=== PATIENT | male | born 1980 | race Caucasian/White ===

== ENCOUNTER 2019-12-31 15:52 | Inpatient (IN) | payer OTHER, BC ==
[2019-12-31] MEDS ORDERED: SODIUM CHLORIDE 0.9% 500 ML 500 ML IV STA (16:12)
[2019-12-31] MEDS ORDERED: SODIUM CHLORIDE 0.9% 1,000 ML IV STA ×2 (16:12)
--- NOTE | 2019-12-31 16:24 | ED ---
General Adult HPI - General Stated complaint: Tachycardia Time Seen by Provider: 12/31/19 16:05 Source: patient, EMS, RN notes reviewed Mode of arrival: EMS Limitations: no limitations - History of Present Illness Initial comments: Patient is a pleasant 39-year-old male presenting to the emergency department with concerns for heat exhaustion. Patient states he was working outside today doing some somewhat heavy exertion with hot temperatures. Patient states he was drinking fluid however feels he is over heated. Patient feels very fatigued and somewhat achy throughout. No history of similar symptoms previously. No recent illness. No vomiting. Patient does feel somewhat thirsty. - Related Data Previous Rx's Medication Instructions Recorded Ondansetron Odt [Zofran ODT] 4 mg PO Q8HR PRN #5 tab 12/26/14 Allergies Allergy/AdvReac Type Severity Reaction Status Date / Time bee venom protein (honey bee) Allergy Rash/Hives Verified 12/31/19 16:54 Review of Systems ROS Statement: Those systems with pertinent positive or pertinent negative responses have been documented in the HPI. ROS Other: All systems not noted in ROS Statement are negative. Constitutional: Reports: as per HPI Eyes: Denies: eye pain ENT: Denies: ear pain Respiratory: Denies: cough Cardiovascular: Denies: chest pain Endocrine: Reports: fatigue Gastrointestinal: Denies: abdominal pain, vomiting Genitourinary: Denies: urgency Musculoskeletal: Denies: back pain Skin: Denies: rash Neurological: Denies: weakness Past Medical History Past Medical History: No Reported History History of Any Multi-Drug Resistant Organisms: None Reported Past Surgical History: Tonsillectomy Past Psychological History: No Psychological Hx Reported Smoking Status: Never smoker Past Alcohol Use History: Rare Past Drug Use History: None Reported General Exam Limitations: no limitations General appearance: alert, in no apparent distress Head exam: Present: normocephalic Eye exam: Present: normal appearance ENT exam: Present: normal oropharynx Neck exam: Present: normal inspection. Absent: tenderness Respiratory exam: Present: normal lung sounds bilaterally Cardiovascular Exam: Present: tachycardia GI/Abdominal exam: Present: soft. Absent: tenderness Extremities exam: Present: normal inspection Neurological exam: Present: alert, oriented X3. Absent: motor sensory deficit Psychiatric exam: Present: normal affect, normal mood Skin exam: Present: normal color Course Vital Signs 12/31/19 12/31/19 12/31/19 15:52 16:00 16:15 Temperature 97.4 F L Pulse Rate 149 H 138 H 121 H Respiratory 20 20 20 Rate Blood Pressure 109/79 102/67 100/66 O2 Sat by Pulse 100 99 99 Oximetry 12/31/19 12/31/19 16:30 16:40 Temperature Pulse Rate 122 H 122 H Respiratory 18 18 Rate Blood Pressure 111/66 115/76 O2 Sat by Pulse 99 99 Oximetry - Reevaluation(s) Reevaluation #1: 12/31/19 16:[address] Condon for final disposition EKG Findings - EKG Comments: EKG Findings:: Sinus tachycardia 143. MN 138. QRS 80. QT 274. QTC 422. Right axis. Normal QRS. No acute ST change. Medical Decision Making - Medical Decision Making Patient reevaluated and resting comfortably in bed. Patient family updated on results and plan. [employer] paged covering for hospital call. - Lab Data Result diagrams: 12/31/19 16:01 12/31/19 16:01 Lab Results 12/31/19 12/31/19 Range/Units 16:01 16:01 WBC 14.9 H (3.8-10.6) k/uL RBC 5.35 (4.30-5.90) m/uL Hgb 16.1 (13.0-17.5) gm/dL Hct 47.3 (39.0-53.0) % MCV 88.4 (80.0-100.0) fL MCH 30.1 (25.0-35.0) pg MCHC 34.1 (31.0-37.0) g/dL RDW 12.4 (11.5-15.5) % Plt Count 377 (150-450) k/uL Neutrophils % 68 % Lymphocytes % 24 % Monocytes % 5 % Eosinophils % 1 % Basophils % 1 % Neutrophils # 10.2 H (1.3-7.7) k/uL Lymphocytes # 3.6 (1.0-4.8) k/uL Monocytes # 0.7 (0-1.0) k/uL Eosinophils # 0.1 (0-0.7) k/uL Basophils # 0.1 (0-0.2) k/uL Sodium 141 (137-145) mmol/L Potassium 4.1 (3.5-5.1) mmol/L Chloride 109 H (98-107) mmol/L Carbon Dioxide 15 L (22-30) mmol/L Anion Gap 17 mmol/L BUN 26 H (9-20) mg/dL Creatinine 2.76 H (0.66-1.25) mg/dL Est GFR (CKD-EPI)AfAm 32 (>60 ml/min/1.73 sqM) Est GFR (CKD-EPI)NonAf 28 (>60 ml/min/1.73 sqM) Glucose 132 H (74-99) mg/dL Calcium 10.6 H (8.4-10.2) mg/dL Magnesium 1.5 L (1.6-2.3) mg/dL Total Bilirubin 1.0 (0.2-1.3) mg/dL AST 269 H (17-59) U/L ALT 78 H (4-49) U/L Alkaline Phosphatase 82 (38-126) U/L Total Protein 8.7 H (6.3-8.2) g/dL Albumin 5.5 H (3.5-5.0) g/dL Disposition Clinical Impression: Dehydration Disposition: ADMITTED IP TO THIS HOSP Is patient prescribed a controlled substance at d/c from ED?: No Referrals: None,Stated [Primary Care Provider] - 1-2 days Decision Time: 17:14
[2019-12-31 16:29] LABS: Basophils # (A) 0.1 k/uL (0-0.2); Basophils % (A) 1 %; Eosinophils # (A) 0.1 k/uL (0-0.7); Eosinophils % (A) 1 %; HCT 47.3 % (39.0-53.0); HGB 16.1 gm/dL (13.0-17.5); Lymphocytes # (A) 3.6 k/uL (1.0-4.8); Lymphocytes % (A) 24 %; MCH 30.1 pg (25.0-35.0); MCHC 34.1 g/dL (31.0-37.0); MCV 88.4 fL (80.0-100.0); Mean Platelet Volume 7.8; Monocytes # (A) 0.7 k/uL (0-1.0); Monocytes % (A) 5 %; Neutrophils # (A) 10.2 k/uL (1.3-7.7); Neutrophils % (A) 68 %; Platelet Count 377 k/uL (150-450); RBC 5.35 m/uL (4.30-5.90); RDW 12.4 % (11.5-15.5); WBC 14.9 k/uL (3.8-10.6)
[2019-12-31 16:40] LABS: Albumin 5.5 g/dL (3.5-5.0); Calcium 10.6 mg/dL (8.4-10.2); Magnesium 1.5 mg/dL (1.6-2.3); Potassium 4.1 mmol/L (3.5-5.1); Total Protein 8.7 g/dL (6.3-8.2)
[2019-12-31] MEDS ORDERED: MAGNESIUM OXIDE 400 MG TAB PO STA (17:13)
[2019-12-31] MEDS ORDERED: NALOXONE 0.4 MG/ML 1 ML VIAL IV PRN (17:14)
[2019-12-31] MEDS ORDERED: ACETAMINOPHEN TAB 500 MG TAB PO PRN (17:57)
--- NOTE | 2019-12-31 18:06 | P.HPIM ---
History of Present Illness H&P Date: 12/31/19 Chief Complaint: Dehydration 39-year-old male with no past medical history presents the ED for lightheadedness and blurry vision. 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 Patient states that he started to overheated, feel lightheaded and blurry vision. These symptoms prompted him to come to the ED. Patient was given 2 L bolus of fluids in the ED. Patient states that he feels much better but feels very exhausted. He denies any history of alcohol use. He denies any headache, lower extremity edema, nausea or vomiting, fever or chills, cough, chest pain, shortness of breath, changes in urination or bowel habits. No changes in appetite or weight. In the ED, patient had elevated heart rate of 138. CBC showed leukocytosis of 14.9. CMP showed chloride of 109, bicarbonate of 15, BUN of 26, creatinine 2.76, glucose of 132. Magnesium was 1.5. AST was 269, ALT 78. EKG showed sinus tachycardia. Patient is admitted for heat exhaustion and dehydration. Review of Systems Pertinent positives and negatives as discussed in HPI, a complete review of systems was performed and all other systems are negative. Past Medical History Past Medical History: No Reported History History of Any Multi-Drug Resistant Organisms: None Reported Past Surgical History: Tonsillectomy Past Psychological History: No Psychological Hx Reported Smoking Status: Never smoker Past Alcohol Use History: Rare Past Drug Use History: None Reported Medications and Allergies Home Medications Medication Instructions Recorded Confirmed Type Acetaminophen Tab [Tylenol Tab] 500 - 1,000 mg PO Q6HR PRN 12/31/19 12/31/19 History Allergies Allergy/AdvReac Type Severity Reaction Status Date / Time bee venom protein (honey bee) Allergy Rash/Hives Verified 12/31/19 17:14 Physical Exam Vitals: Vital Signs Temp Pulse Resp BP Pulse Ox 12/31/19 17:48 107 H 18 109/66 99 12/31/19 16:40 122 H 18 115/76 99 12/31/19 16:30 122 H 18 111/66 99 12/31/19 16:15 121 H 20 100/66 99 12/31/19 16:00 138 H 20 102/67 99 06/09/20 15:52 97.4 F L 149 H 20 109/79 100 Intake and Output 12/31/19 12/31/19 12/31/19 06:59 14:59 22:59 Other: Weight 113.398 kg General: [non toxic], [no distress], [appears at stated age] Derm: [warm], [dry] Head: [atraumatic], [normocephalic], [symmetric] Eyes: [EOMI], [no lid lag], [anicteric sclera] Mouth: [no lip lesion], [mucus membranes moist] Cardiovascular: [S1S2 reg], [tachycardic], [positive posterior tibial pulse bilateral], Lungs: [CTA bilateral], [no rhonchi, no rales] , [no accessory muscle use] Abdominal: [soft], [ nontender to palpation], [no guarding], [no appreciable organomegaly] Ext: [no gross muscle atrophy], [no edema], [no contractures] Neuro: [ CN II-XI grossly intact], [no focal neuro deficits] Psych: [Alert], [oriented], [appropriate affect] Results CBC & Chem 7: 12/31/19 16:01 12/31/19 16:01 Labs: Abnormal Lab Results - Last 24 Hours (Table) 12/31/19 12/31/19 Range/Units 16:01 16:01 WBC 14.9 H (3.8-10.6) k/uL Neutrophils # 10.2 H (1.3-7.7) k/uL Chloride 109 H (98-107) mmol/L Carbon Dioxide 15 L (22-30) mmol/L BUN 26 H (9-20) mg/dL Creatinine 2.76 H (0.66-1.25) mg/dL Glucose 132 H (74-99) mg/dL Calcium 10.6 H (8.4-10.2) mg/dL Magnesium 1.5 L (1.6-2.3) mg/dL AST 269 H (17-59) U/L ALT 78 H (4-49) U/L Total Protein 8.7 H (6.3-8.2) g/dL Albumin 5.5 H (3.5-5.0) g/dL Assessment and Plan Assessment: Heat exhaustion Tachycardia Leukocytosis Hyperchloremic metabolic acidosis Prerenal azotemia Transaminitis Hyperglycemia Patient symptoms have improved after presenting to the ED and receiving 2 L normal saline. He has not had any febrile episodes here. Patient continues to be tachycardic with a heart rate in the low 100s to 110. EKG shows sinus tachycardia. This is likely related to dehydration and patient will be started on normal saline at 130 mL/h. He will be placed on telemetry monitoring. His leukocytosis of 14.9 is likely reactive as there are no signs of infection. His hyperchloremic metabolic acidosis is likely related to infused IVF. He does have elevated BUN of 26, creatinine of 2.76 which is likely related to de hydration. We will repeat BMP tomorrow morning. A1c will be checked due to hyperglycemia. Patient has elevated AST and ALT without any history of alcohol abuse. Lipid panel and hepatic panel will be ordered and followed. DVT prophylaxis: [SCD boots] Discussed with: [Patient] Anticipated discharge: [1-2 days] Anticipated discharge place: [Home] A total of [35] minutes was spent on the care of this complex patient more than 50% of the time was spent in counseling and care coordination. Patient names his Stacia decision-maker if he can't make decisions for himself. Patient would like to be full code.
[2019-12-31] MEDS ORDERED: ONDANSETRON 4 MG/2 ML VIAL IVP PRN (18:22)
[2019-12-31] MEDS: SODIUM CHLORIDE 0.9% 1,000 ML IV SCH (18:28)
[2019-12-31 20:32] LABS: Appearance,Urine Clear (Clear); Bilirubin,Urine Negative (Negative); Blood,Urine Moderate (Negative); Color,Urine Yellow; Glucose,Urine (UA) Negative (Negative); Hyaline Casts,Urine 15 /lpf (0-2); Ketones,Urine 1+ (Negative); Leukocyte Esterase,Urine Negative (Negative); Mucus,Urine Rare /hpf; Nitrite,Urine Negative (Negative); PH, Urine 5.5 (5.0-8.0); Protein,Urine 1+ (Negative); RBC,Urine 1 /hpf (0-5); Squamous Epithelial Cell,Urine <1 /hpf (0-4); Urobilinogen,Urine <2.0 mg/dL (<2.0); WBC,Urine 1 /hpf (0-5)
[2020-01-01] MEDS: SODIUM CHLORIDE 0.9% 1,000 ML IV SCH ×4 (01:20→22:38)
[2020-01-01 10:19] LABS: Albumin 3.4 g/dL (3.5-5.0); Basophils % (A) 0 %; Calcium 7.9 mg/dL (8.4-10.2); Eosinophils # (A) 0.1 k/uL (0-0.7); Eosinophils % (A) 1 %; Lymphocytes % (A) 23 %; MCH 29.3 pg (25.0-35.0); MCHC 32.3 g/dL (31.0-37.0); MCV 90.6 fL (80.0-100.0); Mean Platelet Volume 7.4; Monocytes # (A) 0.4 k/uL (0-1.0); Monocytes % (A) 5 %; Neutrophils # (A) 6.2 k/uL (1.3-7.7); Neutrophils % (A) 70 %; Platelet Count 226 k/uL (150-450); Potassium 3.5 mmol/L (3.5-5.1); RDW 12.8 % (11.5-15.5); Total Bilirubin 0.9 mg/dL (0.2-1.3); Total Protein 5.9 g/dL (6.3-8.2); WBC 8.9 k/uL (3.8-10.6)
[2020-01-01 10:38] LABS: HGB 12.6 gm/dL (13.0-17.5)
[2020-01-01] MEDS ORDERED: SODIUM CHLORIDE 0.9% 1,000 ML IV ONE ×2 (11:07→15:22)
--- NOTE | 2020-01-01 11:49 | US ---
EXAMINATION TYPE: US liver DATE OF EXAM: 01/01/2020 COMPARISON: NONE CLINICAL HISTORY: Transaminitis. abn labs EXAM MEASUREMENTS: Liver Length: 17.3 cm Gallbladder Wall: 0.1 cm CBD: 0.4 cm Right Kidney: 9.9 x 4.9 x 6.2 cm Pancreas: Obscured by bowel gas Liver: Mild hepatomegaly. Gallbladder: wnl Evidence for sonographic Lawrence's sign: neg CBD: wnl Right Kidney: No hydronephrosis or masses seen IMPRESSION: 1. Mild hepatomegaly.
[2020-01-01 12:12] LABS: Appearance,Urine Clear (Clear); Bacteria,Urine Rare /hpf; Bilirubin,Urine Negative (Negative); Blood,Urine Moderate (Negative); Color,Urine Yellow; Glucose,Urine (UA) Negative (Negative); Hyaline Casts,Urine 1 /lpf (0-2); Ketones,Urine Trace (Negative); Leukocyte Esterase,Urine Negative (Negative); Mucus,Urine Rare /hpf; Nitrite,Urine Negative (Negative); PH, Urine 5.5 (5.0-8.0); Protein,Urine 1+ (Negative); Specific Gravity,Urine 1.028 (1.001-1.035); WBC,Urine 1 /hpf (0-5)
[2020-01-01 12:19] LABS: Amphetamine Screen,Urine Not Detected (NotDetected); Barbiturate Screen,Urine Not Detected (NotDetected); Benzodiazepines Screen,Urine Not Detected (NotDetected); Cocaine Screen,Urine Not Detected (NotDetected); Methadone Screen, Urine Not Detected (NotDetected); Opiate Screen,Urine Not Detected (NotDetected); Oxycodone Screen, Urine Not Detected (NotDetected); Phencyclidine Screen,Urine Not Detected (NotDetected); Tricyclic Antidepressant,Urine Not Detected (NotDetected); Urn Cannabinoid Scrn Not Detected (NotDetected)
[2020-01-01 12:36] LABS: ALT 310 U/L (4-49); AST 527 U/L (17-59)
[2020-01-01 15:04] LABS: Creatine Kinase 11941 U/L (55-170)
--- NOTE | 2020-01-01 15:32 | P.PN ---
Subjective Progress Note Date: 01/01/20 Principal diagnosis: Rhabdomyolysis Patient was seen and examined. No acute events overnight. Patient reports significant improvement in his symptoms since admission. Patient complains of dark urine. He denies any chest pain, shortness breath or palpitations. No nausea or vomiting. No fever or chills. Objective - Vital Signs Vital signs: Vital Signs Temp 98.1 F 01/01/20 14:47 Pulse 70 01/01/20 14:47 Resp 18 01/01/20 14:47 BP 104/53 01/01/20 14:47 Pulse Ox 98 01/01/20 14:47 Intake & Output 12/31/19 01/01/20 01/01/20 18:59 06:59 18:59 Intake Total 400 560 Balance 400 560 Weight 113.398 kg 113.398 kg Intake: Oral 400 360 Other 200 Other: Voiding Method Toilet - Exam General: [non toxic], [no distress], [appears at stated age] Derm: [warm], [dry] Head: [atraumatic], [normocephalic], [symmetric] Eyes: [EOMI], [no lid lag], [anicteric sclera] Mouth: [no lip lesion], [mucus membranes moist] Cardiovascular: [S1S2 reg], [tachycardic], [positive posterior tibial pulse bilateral], Lungs: [CTA bilateral], [no rhonchi, no rales] , [no accessory muscle use] Abdominal: [soft], [ nontender to palpation], [no guarding], [no appreciable organomegaly] Ext: [no gross muscle atrophy], [no edema], [no contractures] Neuro: [no focal neuro deficits] Psych: [Alert], [oriented], [appropriate affect] - Labs CBC & Chem 7: 01/01/20 09:17 01/01/20 09:17 Labs: Abnormal Lab Results - Last 24 Hours (Table) 12/31/19 12/31/19 12/31/19 Range/Units 16:01 16:01 20:17 WBC 14.9 H (3.8-10.6) k/uL Hgb (13.0-17.5) gm/dL Neutrophils # 10.2 H (1.3-7.7) k/uL Chloride 109 H (98-107) mmol/L Carbon Dioxide 15 L (22-30) mmol/L BUN 26 H (9-20) mg/dL Creatinine 2.76 H (0.66-1.25) mg/dL Glucose 132 H (74-99) mg/dL Calcium 10.6 H (8.4-10.2) mg/dL Magnesium 1.5 L (1.6-2.3) mg/dL AST 269 H (17-59) U/L ALT 78 H (4-49) U/L Creatine Kinase (55-170) U/L Total Protein 8.7 H (6.3-8.2) g/dL Albumin 5.5 H (3.5-5.0) g/dL HDL Cholesterol (40-60) mg/dL Urine Protein 1+ H (Negative) Urine Ketones 1+ H (Negative) Urine Blood Moderate H (Negative) Urine Bacteria (None) /hpf Hyaline Casts 15 H (0-2) /lpf Urine Mucus Rare H (None) /hpf 01/01/20 01/01/20 01/01/20 Range/Units 09:17 09:17 09:17 WBC (3.8-10.6) k/uL Hgb 12.6 L D (13.0-17.5) gm/dL Neutrophils # (1.3-7.7) k/uL Chloride 111 H (98-107) mmol/L Carbon Dioxide (22-30) mmol/L BUN (9-20) mg/dL Creatinine (0.66-1.25) mg/dL Glucose (74-99) mg/dL Calcium 7.9 L (8.4-10.2) mg/dL Magnesium (1.6-2.3) mg/dL AST 547 H 527 H (17-59) U/L ALT 310 H 310 H (4-49) U/L Creatine Kinase 94459 H* (55-170) U/L Total Protein 5.9 L (6.3-8.2) g/dL Albumin 3.4 L (3.5-5.0) g/dL HDL Cholesterol 37 L (40-60) mg/dL Urine Protein (Negative) Urine Ketones (Negative) Urine Blood (Negative) Urine Bacteria (None) /hpf Hyaline Casts (0-2) /lpf Urine Mucus (None) /hpf 01/01/20 Range/Units 11:20 WBC (3.8-10.6) k/uL Hgb (13.0-17.5) gm/dL Neutrophils # (1.3-7.7) k/uL Chloride (98-107) mmol/L Carbon Dioxide (22-30) mmol/L BUN (9-20) mg/dL Creatinine (0.66-1.25) mg/dL Glucose (74-99) mg/dL Calcium (8.4-10.2) mg/dL Magnesium (1.6-2.3) mg/dL AST (17-59) U/L ALT (4-49) U/L Creatine Kinase (55-170) U/L Total Protein (6.3-8.2) g/dL Albumin (3.5-5.0) g/dL HDL Cholesterol (40-60) mg/dL Urine Protein 1+ H (Negative) Urine Ketones Trace H (Negative) Urine Blood Moderate H (Negative) Urine Bacteria Rare H (None) /hpf Hyaline Casts (0-2) /lpf Urine Mucus Rare H (None) /hpf Assessment and Plan Assessment: Rhabdomyolysis Heat exhaustion Transaminitis Resolved: Hyperglycemia, prerenal azotemia, hyperchloremic metabolic acidosis, leukocytosis, tachycardia Patient symptoms have improved. His prerenal azotemia, metabolic acidosis and tachycardia has improved with IVF. His leukocytosis which was thought to be reactive has also resolved. Patient continues to have elevated liver enzymes with AST 527, ALT 310. His lipid panel was within normal limits except for HDL of 37. Acute hepatitis panel is pending. Liver ultrasound shows mild hepatomegaly. His urinalysis was repeated which shows moderate blood. CPK was obtained which was critical at 11,941. We will bolus him another 2 L and contin ue normal saline at 130 mL/h. LFTs will be repeated along with CPK tomorrow morning. Anticipate DC if patient continues to improve tomorrow.
[2020-01-01 15:48] LABS: ALT 348 U/L (4-49); AST 511 U/L (17-59); African American GFR (CKD) >90 (>60 ml/min/1.73 sqM); Albumin 3.4 g/dL (3.5-5.0); Alkaline Phosphatase 45 U/L (38-126); Anion Gap 4 mmol/L; Blood Urea Nitrogen 16 mg/dL (9-20); Calcium 7.8 mg/dL (8.4-10.2); Carbon Dioxide 24 mmol/L (22-30); Chloride 109 mmol/L (98-107); Glucose 88 mg/dL (74-99); Non-African American GFR(CKD) >90 (>60 ml/min/1.73 sqM); Potassium 3.9 mmol/L (3.5-5.1); Sodium 137 mmol/L (137-145); Total Bilirubin 0.7 mg/dL (0.2-1.3); Total Protein 5.9 g/dL (6.3-8.2)
[2020-01-01 16:54] LABS: Hepatitis A Antibody IgM Non-Reactive (Non-Reactive); Hepatitis B Core IgM Non-Reactive (Non-Reactive); Hepatitis B Surface Antigen Non-Reactive (Non-Reactive); Hepatitis C IgG Antibody Non-Reactive (Non-Reactive)
[2020-01-01 18:51] LABS: Hemoglobin A1C 5.4 % (4.0-6.0)
[2020-01-02] MEDS: SODIUM CHLORIDE 0.9% 1,000 ML IV SCH (06:45)
[2020-01-02 07:29] VITALS: BP 136/75; PULSE 81; RESP 16; TEMP 98.6
[2020-01-02 07:42] LABS: Basophils % (A) 0 %; Eosinophils # (A) 0.2 k/uL (0-0.7); Eosinophils % (A) 3 %; HCT 38.5 % (39.0-53.0); HGB 12.6 gm/dL (13.0-17.5); Lymphocytes # (A) 1.7 k/uL (1.0-4.8); Lymphocytes % (A) 24 %; MCH 29.6 pg (25.0-35.0); MCHC 32.7 g/dL (31.0-37.0); MCV 90.3 fL (80.0-100.0); Mean Platelet Volume 7.6; Monocytes # (A) 0.3 k/uL (0-1.0); Monocytes % (A) 4 %; Neutrophils # (A) 4.9 k/uL (1.3-7.7); Neutrophils % (A) 68 %; Platelet Count 227 k/uL (150-450); RBC 4.26 m/uL (4.30-5.90); RDW 12.6 % (11.5-15.5); WBC 7.2 k/uL (3.8-10.6)
[2020-01-02 08:05] LABS: African American GFR (CKD) >90 (>60 ml/min/1.73 sqM); Anion Gap 5 mmol/L; Blood Urea Nitrogen 7 mg/dL (9-20); Calcium 8.3 mg/dL (8.4-10.2); Carbon Dioxide 23 mmol/L (22-30); Chloride 110 mmol/L (98-107); Glucose 98 mg/dL (74-99); Magnesium 1.9 mg/dL (1.6-2.3); Non-African American GFR(CKD) >90 (>60 ml/min/1.73 sqM); Potassium 4.1 mmol/L (3.5-5.1); Sodium 138 mmol/L (137-145)
[2020-01-02 09:17] LABS: Creatine Kinase 5874 U/L (55-170)
[2020-01-02 09:28] LABS: Albumin 3.5 g/dL (3.5-5.0); Bilirubin, Delta 0.1 mg/dL (0.0-0.2); Bilirubin,Unconjugated 0.6 mg/dL (0.0-1.1); Total Bilirubin 0.7 mg/dL (0.2-1.3); Total Protein 6.2 g/dL (6.3-8.2)
--- NOTE | 2020-01-02 15:13 | P.DS ---
Providers Date of admission: 01/02/20 09:36 Expected date of discharge: 01/02/20 Attending physician: Vee Maria MD Primary care physician: Stated None Hospital Course: 39-year-old male with no past medical history presents the ED for lightheadedness and blurry vision. 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 Patient states that he started to overheated, feel lightheaded and blurry vision. These symptoms prompted him to come to the ED. Patient was given 2 L bolus of fluids in the ED. Patient states that he feels much better but feels very exhausted. He denies any history of alcohol use. He denies any headache, lower extremity edema, nausea or vomiting, fever or chills, cough, chest pain, shortness of breath, changes in urination or bowel habits. No changes in appetite or weight. In the ED, patient had elevated heart rate of 138. CBC showed leukocytosis of 14.9. CMP showed chloride of 109, bicarbonate of 15, BUN of 26, creatinine 2.76, glucose of 132. Magnesium was 1.5. AST was 269, ALT 78. EKG showed sinus tachycardia. Patient is admitted for heat exhaustion and dehydration. Patient's hyperglycemia, prerenal azotemia, hyperchloremic metabolic acidosis, leukocytosis and tachycardia resolved on day 2 of admission with IV fluids. He was noted to have elevated liver enzymes as high as AST 527 and ALT 469. Cr eatinine kinase was checked which showed 11,941. He was continued on IVF and CPK was 5874 on repeat. Patient was seen and examined. No acute events overnight. Patient reports resolution of his symptoms. He denies any chest pain, shortness breath or palpitations. No nausea or vomiting. No fever or chills. Wanting to go home. Needs a note for work. General: [non toxic], [no distress], [appears at stated age] Derm: [warm], [dry] Head: [atraumatic], [normocephalic], [symmetric] Eyes: [EOMI], [no lid lag], [anicteric sclera] Mouth: [no lip lesion], [mucus membranes moist] Cardiovascular: [S1S2 reg], [no murmur], [positive posterior tibial pulse bilateral], Lungs: [CTA bilateral], [no rhonchi, no rales] , [no accessory muscle use] Abdominal: [soft], [ nontender to palpation], [no guarding], [no appreciable organomegaly] Ext: [no gross muscle atrophy], [no edema], [no contractures] Neuro: [no focal neuro deficits] Psych: [Alert], [oriented], [appropriate affect] Rhabdomyolysis Heat exhaustion Transaminitis Resolved: Hyperglycemia, prerenal azotemia, hyperchloremic metabolic acidosis, leukocytosis, tachycardia Patient symptoms have improved. His prerenal azotemia, metabolic acidosis and tachycardia has improved with IVF. His leukocytosis which was thought to be reactive has also resolved. Patient continues to have elevated liver enzymes. His lipid panel was within normal limits except for HDL of 37. Acute hepatitis panel is negative. Liver ultrasound shows mild hepatomegaly. His LFTs on the day of discharge is AST 409, ALT of 469. His CPK has improved from [phone]. Patient is advised to repeat CMP and CPK within 3 days of discharge. He is advised hydration right mouth. Patient is advised to take Monday, Monday and Monday off work for recovery. He will need to follow-up with his PCP within 3 days of discharge. His PCP will follow-up CMP and CPK. Return to work letter given to patient for Monday. Patient verbalized understanding of the plan. Plans for DC home today. This complex discharge took about 35 minutes to complete. Pertinent Studies: Liver ultrasound Patient Condition at Discharge: Stable Plan - Discharge Summary Discharge Rx Participant: No New Discharge Prescriptions: Discontinued Acetaminophen Tab [Tylenol Tab] 500 - 1,000 mg PO Q6HR PRN PRN Reason: Pain Follow up Appointment(s)/Referral(s): None,Stated [Primary Care Provider] - 1-2 days Ambulatory/Diagnostic Orders: Comprehensive Metabolic Panel [LAB.AMB] Time Frame: 3 Days, Location: None Selected Miscellaneous Lab Order [LAB.AMB] Location: None Selected Patient Instructions/Handouts: Dehydration (DC) Activity/Diet/Wound Care/Special Instructions: Diet: Regular Follow-up with PCP within 3 days of discharge. Repeat CMP and CPK in 3 days. Follow-up results of test with your PCP. Stop taking Tylenol. Please maintain oral intake of water.
== END 2020-01-02 11:00 | disposition home or self-care (01) | DRG 641 ==
LOC: EC 15:52 → 1SOBS 17:14 → OBSVTOIN 01-02 09:36
PROVIDERS: ADMIT Family Medicine; ATTEND Family Medicine
DX: E86.0 Dehydration (principal); M62.82 Rhabdomyolysis; E87.2 Acidosis; R16.0 Hepatomegaly, not elsewhere classified; Z11.59 Encounter for screening for other viral diseases; R00.0 Tachycardia, unspecified; T67.5XXA Heat exhaustion, unspecified, initial encounter; D72.829 Elevated white blood cell count, unspecified; R74.0 Nonspecific elevation of levels of transaminase and lactic acid dehydrogenase [LDH]; R94.4 Abnormal results of kidney function studies; R74.8 Abnormal levels of other serum enzymes; R73.9 Hyperglycemia, unspecified; X30.XXXA Exposure to excessive natural heat, initial encounter; Z91.030 Bee allergy status; Z98.890 Other specified postprocedural states
CPT/HCPCS: 36415; 76705; 80048; 80053; 80061; 80074; 80076; 80306; 81001; 82550; 83036; 83735; 84450; 84460; 85025; 93005; 96361; 96374; 99285